=== PATIENT | female | born 1985 | race Caucasian/White ===

== ENCOUNTER 2016-06-20 07:04 | Emergency (ER) | payer OTHER ==
[2016-06-20] MEDS ORDERED: KETOROLAC TROMETHAMINE 30 MG/1 ML VIAL IM ONE (07:25)
--- NOTE | 2016-06-20 07:26 | PDOC ---
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 She is complaining of left elbow pain and low back pain. She has a history of L5 /S1 laminectomy. She denies any head trauma or neck pain. Patient is ambulatory in the ED. Vital signs on arrival are unremarkable. REVIEW OF SYSTEMS: GENERAL/CONSTITUTIONAL: No fever or chills. No weakness. No weight change. HEAD, EYES, EARS, NOSE AND THROAT: No change in vision. No ear pain or discharge. No sore throat. CARDIOVASCULAR: No chest pain or palpitations. RESPIRATORY: No cough, wheezing, or shortness of breath. GASTROINTESTINAL: No nausea, vomiting, diarrhea or constipation. GENITOURINARY: No dysuria, frequency, or change in urination. MUSCULOSKELETAL: See HPI. SKIN: No rash or easy bruising. NEUROLOGIC: No headache, vertigo, loss of consciousness, or loss of sensation. PSYCHIATRIC: No depression or anxiety. ENDOCRINE: No increased thirst. No abnormal weight change. HEMATOLOGIC/LYMPHATIC: No anemia, easy bleeding, or history of blood clots. ALLERGIC/IMMUNOLOGIC: No hives or skin allergy. No latex allergy. PHYSICAL EXAM: GENERAL: The patient is awake, alert, and fully oriented, in no acute distress. HEAD: Normal with no signs of trauma. ENT: Pupils equal, round and reactive to light, extraocular movements intact, sclera anicteric, conjunctiva clear. Neck supple. LUNGS: Clear to auscultation bilaterally. Normal excursion. No respiratory distress or use of accessory muscles. CV: RRR, S1/S2, no MRG. Cap refill < 2 sec. ABDOMEN: Soft, non-distended, non-tender. EXTREMITIES: Able to pronate, supinate, flex, and extend left arm. Movement and sensation of fingers intact. NEUROLOGICAL: Normal speech, normal gait. CN II-XII grossly intact. Diffuse paravertebral lumbar tenderness, no spinal tenderness. PSYCH: Normal mood, normal affect. SKIN: Warm, dry, normal turgor, no rashes or lesions noted. Past History - Past Medical History Allergies/Adverse Reactions: Allergies Allergy/AdvReac Type Severity Reaction Status Date / Time No Known Drug Allergies Allergy Verified 06/20/16 07:34 Home Medications: Ambulatory Orders Cyclobenzaprine HCl [Flexeril -] 10 mg PO HS #5 tablet 06/20/16 Ibuprofen [Motrin -] 600 mg PO QID PRN #30 tablet 06/20/16 Anemia: No Asthma: No Cancer: No Cardiac Disorders: No CVA: No COPD: No CHF: No Dementia: No Diabetes: No GI Disorders: No Disorders: No HTN: No Hypercholesterolemia: No Liver Disease: No Seizures: No Thyroid Disease: No - Surgical History Abdominal Surgery: No Appendectomy: No Cardiac Surgery: No Cholecystectomy: No Lung Surgery: No Neurologic Surgery: No Orthopedic Surgery: Yes (lamenectomy 2016) - Immunization History Immunization Up to Date: Yes - Psycho/Social/Smoking Cessation Hx Suicidal Ideation: No Smoking History: Never smoked Have you smoked in the past 12 months: No Hx Alcohol Use: Yes (socially) Drug/Substance Use Hx: No Substance Use Type: None Hx Substance Use Treatment: No ED Treatment Course - RADIOLOGY Radiology Studies Ordered: Category Date Time Status ELBOW-LEFT [RAD] Stat Radiology 06/20/16 07:25 Ordered SPINE-LUMBAR SACRAL [RAD] Stat Radiology 06/20/16 07:26 Ordered Medical Decision Making - Medical Decision Making 06/20/16 09:15 A/P: 31 year old female s/p fall with elbow pain and low back pain. 1. Elbow and lumbar spine xrays 2. Toradol 30mg IM for pain Xrays reviewed and interpreted by radiology: no acute fractures. -Sling -Ice -Ibuprofen *DC/Admit/Observation/Transfer Diagnosis at time of Disposition: Fall Qualifiers: Encounter type: initial encounter Qualified Code(s): W19.XXXA - Unspecified fall, initial encounter Elbow sprain Qualifiers: Encounter type: initial encounter Laterality: left Qualified Code(s): S53.402A - Unspecified sprain of left elbow, initial encounter Low back strain Qualifiers: Encounter type: initial encounter Qualified Code(s): S39.012A - Strain of muscle, fascia and tendon of lower back, initial encounter - Discharge Dispostion Disposition: HOME Admit: No - Prescriptions Prescriptions: Cyclobenzaprine HCl [Flexeril -] 10 mg PO HS #5 tablet Ibuprofen [Motrin -] 600 mg PO QID PRN #30 tablet PRN Reason: Pain - Referrals Referrals: Ramone Amanda [Primary Care Provider] - - Patient Instructions Printed Discharge Instructions: How to Use a Sling Additional Instructions: -You were seen today after a fall. -Your x-rays of your elbow and lumbar/sacral spine were normal. -Rest and apply ice to the painful areas. -Take ibuprofen 600 mg every 6 hours with food as prescribed. -Return here for any new or concerning symptoms - Post Discharge Activity Work/School Note: Back to Work
[2016-06-20 07:47] VITALS: BP 125/97; PULSE 75; TEMP 98.4; BMI 29.7
[2016-06-20] MEDS ORDERED: KETOROLAC TROMETHAMINE 30 MG/1 ML VIAL ONE (08:00)
== END 2016-06-20 09:08 | disposition home or self-care (01) ==
LOC: JER 07:04
PROC: 3E0233Z Introduction of Anti-inflammatory into Muscle, Percutaneous Approach (ICD-10-PCS; principal; 2016-06-20)
DX: S39.012A Strain of muscle, fascia and tendon of lower back, initial encounter (principal); S53.492A Other sprain of left elbow, initial encounter; W00.0XXA Fall on same level due to ice and snow, initial encounter; Y93.01 Activity, walking, marching and hiking; Y92.238 Other place in hospital as the place of occurrence of the external cause; Y99.0 Civilian activity done for income or pay
CPT/HCPCS: 72100-TC; 73070-TC-LT; 84703; 99283-25

== ENCOUNTER 2017-07-07 12:13 | Emergency (ER) | payer OTHER ==
[2017-07-07 12:23] VITALS: BP 113/68; PULSE 93; TEMP 98.6; BMI 31.3
--- NOTE | 2017-07-07 12:49 | PDOC ---
Post Exposure HPI - General Chief Complaint: Blood/Body Fluid Exposure SJR Stated Complaint: NEEDLE STICK Time Seen by Provider: 07/07/17 12:29 History Source: Patient Exam Limitations: No Limitations - History of Present Illness Initial Comments: 07/07/17 12:44 32 yr female employee works in [place] had accidental needle stick to left middle digit from suture . Pt is currently 5 months , the source HIV/Hep status is unknown. pt states tetanus is UTD. Severity: mild Past History - Past Medical History Allergies/Adverse Reactions: Allergies Allergy/AdvReac Type Severity Reaction Status Date / Time No Known Drug Allergies Allergy Verified 07/07/17 12:20 Home Medications: Ambulatory Orders NK [No Known Home Medication] 07/07/17 Anemia: No Asthma: No Cancer: No Cardiac Disorders: No CVA: No COPD: No CHF: No Dementia: No Diabetes: No GI Disorders: No Disorders: No HTN: No Hypercholesterolemia: No Liver Disease: No Seizures: No Thyroid Disease: No - Surgical History Abdominal Surgery: No Appendectomy: No Cardiac Surgery: No Cholecystectomy: No Lung Surgery: No Neurologic Surgery: No Orthopedic Surgery: Yes (lamenectomy 2016) - Immunization History Immunization Up to Date: Yes - Suicide/Smoking/Psychosocial Hx Smoking History: Never smoked Have you smoked in the past 12 months: No Information on smoking cessation initiated: No Hx Alcohol Use: No Drug/Substance Use Hx: No Substance Use Type: None Hx Substance Use Treatment: No *Physical Exam - Vital Signs Last Vital Signs Temp Pulse Resp BP Pulse Ox 98.6 F 93 H 16 113/68 98 07/07/17 12:20 07/07/17 12:20 07/07/17 12:20 07/07/17 12:20 07/07/17 12:20 - Physical Exam General Appearance: Yes: Nourished, Appropriately Dressed HEENT: positive: EOMI, TUCKER Neck: positive: Supple Respiratory/Chest: positive: Lungs Clear, Normal Breath Sounds Extremity: positive: Other (left middle digit with betadine cleansed finger, no bleeding PW is not visible ) Integumentary: positive: Normal Color, Dry, Warm Neurologic: positive: Fully Oriented, Alert, Normal Mood/Affect, Normal Response , Motor Strength 5/5 Post Exposure - ED Protocol - Exposure Treatment Washing/Decontamination: Other (betadine) Source Patient HIV Status:: Unknown Is PEP indicated?: Yes Prophylaxis for HIV discussed?: Yes Prophylaxis given?: No Prophylaxis refused?: Yes Baseline bloods drawn prophylaxis:(use *Exposure-Hosp Emp): Yes - Referrals Employee Referred to Employee Health:: Yes Medical Decision Making - Medical Decision Making 07/07/17 15:15 cc: needle stick to left middle digit wound cleaned and irrigated with betadine in the OR prior to arrival pt is 5 months refused PEP states she is having the source pt get tested, as she has followed up with the MD taking care of pt in [place] will draw baseline bloods *DC/Admit/Observation/Transfer Diagnosis at time of Disposition: Needle stick injury of finger Qualifiers: Encounter type: initial encounter Qualified Code(s): S61.239A - Puncture wound without foreign body of unspecified finger without damage to nail, initial encounter - Discharge Dispostion Disposition: HOME Condition at time of disposition: Good - Referrals Referrals: Ramone Amanda [Primary Care Provider] - - Patient Instructions Printed Discharge Instructions: How to Handle Body Fluid Exposure -- Healthcare Worker Additional Instructions: please go to employee health now for follow up - Post Discharge Activity Forms/Work/School Notes: Back to Work
[2017-07-08 06:09] LABS: HBsAG SCREEN Negative (Negative); HEPATITIS B CORE ANTIBODY Negative (Negative)
== END 2017-07-07 13:02 | disposition home or self-care (01) ==
LOC: JERFT 12:13
DX: O26.892 Other specified pregnancy related conditions, second trimester (principal); Z77.21 Contact with and (suspected) exposure to potentially hazardous body fluids; W46.0XXA Contact with hypodermic needle, initial encounter; Y93.89 Activity, other specified; Y92.234 Operating room of hospital as the place of occurrence of the external cause; Y99.0 Civilian activity done for income or pay
CPT/HCPCS: 36415; 86704; 87340; 87389; 99281-25

== ENCOUNTER 2018-09-04 12:09 | Emergency (ER) | payer OTHER ==
[2018-09-04 12:14] VITALS: BP 123/82; PULSE 82; TEMP 98.9; BMI 34.4
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
[2018-09-04 13:42] LABS: BASO % 0.5 % (0-2.0); EOS % 0.5 % (0-4.5); HEMATOCRIT 41.4 % (32.4-45.2); HEMOGLOBIN 14.1 GM/dL (10.7-15.3); LYMPH % 31.9 % (8-40); MCH 29.8 pg (25.7-33.7); MEAN CELL VOLUME 87.6 fl (80-96); MEAN PLT VOLUME 8.3 fl (7.5-11.1); MONO % 5.7 % (3.8-10.2); NEUT % 61.4 % (42.8-82.8); PLATELET COUNT 288 K/MM3 (134-434); RBC 4.73 M/mm3 (3.60-5.2); RDW 12.5 % (11.6-15.6); WHITE BLOOD COUNT 9.1 K/mm3 (4.0-10.0)
[2018-09-04 17:29] LABS: ALBUMIN 4.1 g/dl (3.4-5.0); ALK PHOS 97 U/L (45-117); ANION GAP 8 MMOL/L (8-16); BILIRUBIN,TOTAL 0.5 mg/dL (0.2-1); BLOOD UREA NITROGEN 12 mg/dL (7-18); CALCIUM 8.9 mg/dL (8.5-10.1); CHLORIDE 104 mmol/L (98-107); CHOLESTEROL 196 mg/dL (50-200); CO2 26 mmol/L (21-32); CREATININE 0.6 mg/dL (0.55-1.3); GLUCOSE,RANDOM 82 mg/dL (74-106); LDH 178 U/L (84-246); PHOSPHOROUS 3.5 mg/dL (2.5-4.9); POTASSIUM 3.9 mmol/L (3.5-5.1); SGOT/AST 20 U/L (15-37); SGPT/ALT 24 U/L (13-61); SODIUM 137 mmol/L (136-145); TRIGLYCERIDES 119 mg/dL (0-150); URIC ACID 4.5 mg/dL (2.6-7.2)
[2018-09-04 18:22] LABS: GAMMA GLUTAMYL TRANSPEPTIDASE 26 U/L (5-85)
[2018-09-06 04:11] LABS: HBsAG SCREEN Negative (Negative)
== END 2018-09-04 16:37 | disposition home or self-care (01) ==
LOC: JERFT 12:09
DX: Z77.21 Contact with and (suspected) exposure to potentially hazardous body fluids (principal); X58.XXXA Exposure to other specified factors, initial encounter; Y93.89 Activity, other specified; Y92.234 Operating room of hospital as the place of occurrence of the external cause; Y99.0 Civilian activity done for income or pay
CPT/HCPCS: 36415; 80053; 82465; 82977; 83615; 84100; 84478; 84550; 85025; 86317; 86706; 86803; 87340; 87389; 99281-25

== ENCOUNTER 2020-10-01 10:05 | Emergency (ER) | payer OTHER ==
[2020-10-01 10:13] VITALS: BP 121/78; PULSE 69; TEMP 98.5; BMI 30.5
[2020-10-01 11:05] LABS: BASO % 0.3 % (0-2.0); EOS % 1.7 % (0-4.5); HEMATOCRIT 40.7 % (32.4-45.2); HEMOGLOBIN 13.7 GM/dL (10.7-15.3); LYMPH % 31.3 % (8-40); MCHC 33.7 g/dl (32.0-36.0); MEAN CELL VOLUME 89.2 fl (80-96); MEAN PLT VOLUME 8.7 fl (7.5-11.1); MONO % 6.3 % (3.8-10.2); NEUT % 60.4 % (42.8-82.8); PLATELET COUNT 261 K/MM3 (134-434); RBC 4.57 M/mm3 (3.60-5.2); WHITE BLOOD COUNT 8.8 K/mm3 (4.0-10.0)
[2020-10-01 12:22] LABS: HIV INTERPRETATION NEGATIVE (NEGATIVE)
== END 2020-10-01 11:00 | disposition home or self-care (01) ==
LOC: JER 10:05
DX: Z77.21 Contact with and (suspected) exposure to potentially hazardous body fluids (principal)
CPT/HCPCS: 36415; 84460; 85025; 86317; 86704; 86803; 87340; 87389; 99283-25

== ENCOUNTER 2020-10-09 07:27 | Emergency (ER) | payer OTHER ==
[2020-10-09] MEDS ORDERED: IBUPROFEN 600 MG TABLET (FP) PO ONE ×2 (07:53→08:12)
[2020-10-09 08:02] VITALS: BP 112/78; PULSE 69; TEMP 98.2; BMI 31.4
== END 2020-10-09 09:28 | disposition home or self-care (01) ==
LOC: JER 07:27
DX: S60.511A Abrasion of right hand, initial encounter (principal); S80.211A Abrasion, right knee, initial encounter; M25.531 Pain in right wrist; M25.561 Pain in right knee
CPT/HCPCS: 73110-TC-RT-FY; 73130-TC-RT-FY; 73562-TC-RT-FY; 99284-25

== ENCOUNTER 2021-11-22 22:04 | Emergency (ER) | payer OTHER ==
[2021-11-22 22:13] VITALS: BP 119/88; PULSE 63; TEMP 99; BMI 29.0
== END 2021-11-22 23:06 | disposition home or self-care (01) ==
LOC: FER 22:04
DX: U07.1 COVID-19 (principal); R07.9 Chest pain, unspecified
CPT/HCPCS: 71045-TC-FY; 93005; 99284-25